=== PATIENT | male | born 1975 | race Caucasian/White ===

== ENCOUNTER 2020-04-15 11:58 | Emergency (ER) | payer OTHER ==
[~2020-04-15] VITALS: Ht 172.7 cm; Wt 70.5 kg
[~2020-04-15 11:58] MED LIST: NO HOME MEDICATIONS
[2020-04-15 12:06] VITALS: BP 116/77; TEMP 98
[2020-04-15 13:04] VITALS: PULSE 60
== END 2020-04-15 13:04 | disposition home or self-care (01) ==
LOC: COL.ER 11:58
DX: S61.412A Laceration without foreign body of left hand, initial encounter (principal); Z88.1 Allergy status to other antibiotic agents; W26.0XXA Contact with knife, initial encounter

== ENCOUNTER 2021-02-11 05:51 | Emergency (ER) | payer OTHER ==
[~2021-02-11] VITALS: Ht 172.7 cm; Wt 70.5 kg
[2021-02-11 07:48] VITALS: BP 101/59; PULSE 63; TEMP 98.1
[2021-02-13] MEDS ORDERED: SYNTHROID 0.0.025 MG PO (15:07)
== END 2021-02-11 07:48 | disposition home or self-care (01) ==
LOC: COL.ER 05:51
DX: U07.1 COVID-19 (principal)